=== PATIENT | female | born 1940 | race African-American/Black ===

== ENCOUNTER 2023-09-14 11:08 | Emergency (ER) | payer OTHER ==
[2023-09-14 11:27] VITALS: BP 167/93; PULSE 87; RESP 16; TEMP 99.9; BMI 23.3
[2023-09-14] MEDS ORDERED: oxyCODONE HCL 5 MG TABLET ONE (11:29)
[2023-09-14] MEDS: oxyCODONE HCL 5 MG TABLET PO ONE (11:31)
== END 2023-09-14 12:17 | disposition home or self-care (01) ==
LOC: FER 11:08
DX: M17.11 Unilateral primary osteoarthritis, right knee (principal)
CPT/HCPCS: 73562-TC-RT-FY; 99283-25